=== PATIENT | female | born 1995 | race Caucasian/White ===

== ENCOUNTER 2022-10-17 20:29 | Emergency (ER) | payer BC, OTHER ==
[~2022-10-17] VITALS: Ht 152.4 cm; Wt 54.4 kg
[~2022-10-17 20:29] MED LIST: ASPI-1165 PO; LEVO500T2 PO; NORG1TAB86 PO
--- NOTE | 2022-10-17 20:44 | NUR ---
Pt provided urine sample, sent to lab.
--- NOTE | 2022-10-17 20:46 | NUR ---
Dr. Oviedo evaluated patient at bedside. MSE in progress.
--- NOTE | 2022-10-17 21:17 | NUR ---
Ultrasound at bedside.
[2022-10-17 21:24] LABS: HEMATOCRIT 40.1 % (31.2-41.9); MEAN CORPUSCULAR HEMOGLOBIN 28.9 uug (24.7-32.8); MEAN CORPUSCULAR VOLUME 86.6 fL (75.5-95.3); PLATELET COUNT (AUTO) 324 K/uL (179-408)
[2022-10-17 21:25] LABS: *BILIRUBIN,URIN NEGATIVE (NEGATIVE); *BLOOD, URINE NEGATIVE (NEGATIVE); *CLARITY,URINE CLEAR (CLEAR); *COLOR,URINE YELLOW (YELLOW); *KETONES,URINE NEGATIVE (NEGATIVE); *UROBILINOGEN,URINE 0.2 E.U./dl (NORMAL); LEUKOCYTE ESTERASE ,URINE NEGATIVE (NEGATIVE); NITRITE, URINE NEGATIVE (NEGATIVE); PH,URINE 6.5 (5.0-8.0); UGLUCOSE NEGATIVE (NEGATIVE)
[2022-10-17 21:30] LABS: *URINE HCG, QUAL NEGATIVE (NEGATIVE)
[2022-10-17 21:35] LABS: BILIRUBIN,DIRECT 0.1 mg/dL (0.0-0.2); BILIRUBIN,TOTAL 0.2 mg/dL (0.2-1.0); CREATININE 0.7 mg/dL (0.6-1.3); POTASSIUM 4.1 mmol/L (3.5-5.1); TOTAL PROTEIN, SERUM 7.5 g/dL (6.4-8.2)
--- NOTE | 2022-10-17 21:46 | NUR ---
Patient taken to CT via wheelchair accompanied by
[2022-10-17 22:40] VITALS: BP 133/75
--- NOTE | 2022-10-17 22:40 | NUR ---
Patient discharged to home in stable condition. Written and verbal after care instructions given. Patient verbalizes understanding of instructions. Stressed follow up or return to ER for worsening s/s.
== END 2022-10-17 22:41 | disposition home or self-care (01) ==
LOC: ER 20:29
DX: N83.201 Unspecified ovarian cyst, right side (principal); R10.2 Pelvic and perineal pain; Z88.1 Allergy status to other antibiotic agents; Z79.2 Long term (current) use of antibiotics; Z79.82 Long term (current) use of aspirin; Z79.899 Other long term (current) drug therapy
CPT/HCPCS: 36415; 76856; 83690; 84703; 85025; A4663